=== PATIENT | male | born 1945 | race Two or more races ===

== ENCOUNTER 2024-02-12 13:02 | Inpatient (IN) | payer OTHER ==
[~2024-02-12] VITALS: Ht 180.3 cm; Wt 105.7 kg
[2024-02-12] MEDS ORDERED: IRBESARTAN300 MG PO (13:22)
[2024-02-12] MEDS ORDERED: CARVEDILOL ER40 MG PO (13:22)
[2024-02-12] MEDS ORDERED: LASIX20 MG PO (13:23)
[2024-02-12] MEDS ORDERED: LIPITOR20 MG PO (13:23)
[2024-02-12] MEDS ORDERED: FOSAMAX70 MG PO (13:23)
[2024-02-12] MEDS ORDERED: CARDURA XL4 MG PO (13:24)
[2024-02-12] MEDS ORDERED: ELIQUIS5 MG PO (13:24)
[2024-02-12 16:12] LABS: HEMATOCRIT 23.8 % (39.0-48.0); MEAN CELL VOLUME 72.1 fL (80.0-100.00); MEAN CORPUSCULAR HGB CONC 29.8 g/dl (32.0-36.0); PLATELET COUNT 236 K/uL (150-450); RED BLOOD COUNT 3.31 M/uL (4.00-6.00); RED CELL DISTRIBUTION WIDTH 18.8 % (11.5-14.5)
[2024-02-12 16:14] LABS: MEAN CORPUSCULAR HEMOGLOBIN 21.4 pg (27.00-32.0)
[2024-02-12 16:15] LABS: HEMOGLOBIN 7.1 g/dL (13-16.00)
[2024-02-12 16:32] LABS: INR 1.12; PARTIAL THROMBOPLASTIN TIME 27.6 SECONDS (22.0-34.0); PROTHROMBIN TIME 12.1 SECONDS (9.0-11.5)
[2024-02-12 16:37] LABS: BILIRUBIN TOTAL 0.47 mg/dL (0.3-1.2); CALCIUM 8.4 mg/dL (8.5-10.1); CREATININE SERUM 1.65 mg/dL (0.70-1.30); GFR 40.76; GLOBULINA 3.3 G/DL (2.4-3.5); POTASSIUM 4.31 mEq/L (3.5-5.1); TOTAL PROTEIN 6.3 gm/dL (6.4-8.2)
[2024-02-12] MEDS ORDERED: FUROsemide 20 MG/2 ML VIAL IV SCH (18:30)
[2024-02-12] MEDS ORDERED: 0.9 % SODIUM CHLORIDE 1,000 ML IV SCH (18:30)
[2024-02-12] MEDS ORDERED: CARVEDILOL 12.5 MG TABLET PO SCH (18:34)
[2024-02-12] MEDS ORDERED: PANTOPRAZOLE SODIUM 40 MG/VIAL VIAL IV SCH (18:36)
[2024-02-12] MEDS ORDERED: ACETAMINOPHEN 500 MG GEL..CAP PO PRN (18:45)
[2024-02-12 19:45] LABS: PH,URINE 5.5 (5.0-8.0); URINE BILIRRUBIN Negative (NEGATIVE); URINE BLOOD Negative; URINE COLOR Yellow; URINE GLUCOSE Negative (NEGATIVE); URINE KETONE Negative (NEGATIVE); URINE LEUKOCYTE Negative; URINE NITRATE Negative; URINE PROTEIN Trace (NEGATIVE); URINE UROBILINOGEN 0.2 E.U./dl
[2024-02-12 19:46] LABS: URINE BACTERIA 20.1 uL (0.0-1933); URINE EPITHELIAL CELLS 4.6 uL (0.0-38.8); URINE RBC 4.1 uL (0.0-20.8); URINE WBC 10.1 uL (0.0-23.2)
[2024-02-12 19:50] LABS: URINE APPEARANCE CLEAR; URINE CAST 0.15 uL (0.0-1.40)
[2024-02-13 02:01] VITALS: BP 124/81
[2024-02-13 08:52] VITALS: BP 127/81
[2024-02-13] MEDS ORDERED: ATORVASTATIN CALCIUM 20 MG TABLET PO SCH (09:00)
[2024-02-13] MEDS ORDERED: IRBESARTAN 300 MG TABLET PO SCH (09:00)
[2024-02-13] MEDS ORDERED: IRON FUM,PS/FOLIC/BCOMP,C NO.9 1 CAP CAPSULE PO SCH (09:00)
[2024-02-13] MEDS ORDERED: ALLOPURINOL 300 MG TABLET PO SCH (12:00)
[2024-02-13] MEDS ORDERED: SOD FERRIC GLUC COMPLX/SUCROSE 62.5 MG/5 ML AMPUL IV SCH (17:00)
[2024-02-13] MEDS ORDERED: DOXAZOSIN MESYLATE 4 MG TABLET PO SCH (17:00)
[2024-02-13 18:27] VITALS: BP 153/85; O2SAT 97
[2024-02-13 22:57] VITALS: BP 144/85; O2SAT 97
[2024-02-13] MEDS ORDERED: METHYLPREDNISOLONE SOD SUCC 40 MG VIAL IV PRN (23:00)
[2024-02-13] MEDS ORDERED: DIPHENHYDRAMINE HCL 50 MG/ML VIAL 1ML IV PRN (23:00)
[2024-02-14 02:32] VITALS: BP 128/74; O2SAT 95
[2024-02-14] MEDS ORDERED: ACETAMINOPHEN 500 MG GEL..CAP PO PRN (07:15)
[2024-02-14 09:06] LABS: RH NEGATIVE
[2024-02-14 09:42] VITALS: BP 158/90
[2024-02-14 15:49] LABS: ob POSITIVE (NEGATIVE)
[2024-02-14 16:31] VITALS: BP 140/80; O2SAT 99
[2024-02-15 00:47] VITALS: BP 140/88
[2024-02-15 09:27] VITALS: BP 135/78; O2SAT 97
[2024-02-15] MEDS ORDERED: SPIRONOLACTONE 25 MG TABLET PO NR (10:26)
[2024-02-15 17:16] VITALS: BP 148/84
[2024-02-16 00:16] VITALS: BP 153/82; O2SAT 96
[2024-02-16 03:17] LABS: HEMATOCRIT 27.8 % (39.0-48.0); HEMOGLOBIN 8.6 g/dL (13-16.00); MEAN CELL VOLUME 73.4 fL (80.0-100.00); MEAN CORPUSCULAR HEMOGLOBIN 22.6 pg (27.00-32.0); PLATELET COUNT 216 K/uL (150-450); RED BLOOD COUNT 3.79 M/uL (4.00-6.00); RED CELL DISTRIBUTION WIDTH 19.3 % (11.5-14.5)
[2024-02-16 08:33] VITALS: BP 140/79; O2SAT 97
[2024-02-16] MEDS ORDERED: SPIRONOLACTONE 25 MG TABLET PO SCH (09:00)
[2024-02-16 15:30] VITALS: BP 156/81; O2SAT 98
[2024-02-16 18:27] LABS: HEMATOCRIT 28.5 % (39.0-48.0); MEAN CELL VOLUME 75.6 fL (80.0-100.00); MEAN CORPUSCULAR HGB CONC 31.4 g/dl (32.0-36.0); PLATELET COUNT 209 K/uL (150-450); RED BLOOD COUNT 3.77 M/uL (4.00-6.00); RED CELL DISTRIBUTION WIDTH 20.1 % (11.5-14.5)
[2024-02-16 18:28] LABS: HEMOGLOBIN 8.9 g/dL (13-16.00); MEAN CORPUSCULAR HEMOGLOBIN 23.6 pg (27.00-32.0)
[2024-02-17 01:06] VITALS: BP 120/70; O2SAT 95
[2024-02-17 08:57] VITALS: BP 150/90; O2SAT 97
[2024-02-17 16:46] VITALS: BP 173/90; O2SAT 98
[2024-02-18 00:53] VITALS: BP 120/66; O2SAT 96
[2024-02-18] MEDS ORDERED: CARVEDILOL 25 MG TABLET PO SCH (09:00)
[2024-02-18 10:25] LABS: HEMATOCRIT 35.4 % (39.0-48.0); HEMOGLOBIN 11.2 g/dL (13-16.00); MEAN CELL VOLUME 77.6 fL (80.0-100.00); MEAN CORPUSCULAR HEMOGLOBIN 24.6 pg (27.00-32.0); MEAN CORPUSCULAR HGB CONC 31.7 g/dl (32.0-36.0); PLATELET COUNT 195 K/uL (150-450); RED BLOOD COUNT 4.56 M/uL (4.00-6.00); RED CELL DISTRIBUTION WIDTH 20.8 % (11.5-14.5)
[2024-02-18 16:51] VITALS: BP 126/73; O2SAT 96
[2024-02-18 20:34] VITALS: BP 158/90; O2SAT 96
[2024-02-19 00:36] VITALS: BP 152/77; O2SAT 98
[2024-02-19 06:53] LABS: HEMATOCRIT 37.2 % (39.0-48.0); HEMOGLOBIN 11.8 g/dL (13-16.00); MEAN CELL VOLUME 78.1 fL (80.0-100.00); MEAN CORPUSCULAR HEMOGLOBIN 24.7 pg (27.00-32.0); MEAN CORPUSCULAR HGB CONC 31.6 g/dl (32.0-36.0); PLATELET COUNT 204 K/uL (150-450); RED BLOOD COUNT 4.77 M/uL (4.00-6.00); RED CELL DISTRIBUTION WIDTH 21.5 % (11.5-14.5)
[2024-02-19 07:33] LABS: BILIRUBIN TOTAL 0.84 mg/dL (0.3-1.2); CALCIUM 8.8 mg/dL (8.5-10.1); CREATININE SERUM 1.53 mg/dL (0.70-1.30); GFR 44.47; GLOBULINA 3.4 G/DL (2.4-3.5); MAGNESIUM 2.4 mg/dL (1.8-2.4); PHOSPHOROUS 2.9 mg/dL (2.5-4.9); POTASSIUM 4.4 mEq/L (3.5-5.1); TOTAL PROTEIN 6.4 gm/dL (6.4-8.2)
[2024-02-19 08:47] VITALS: BP 159/68; O2SAT 99
[2024-02-19 17:07] VITALS: BP 147/85; O2SAT 97
[2024-02-19 23:51] VITALS: BP 160/85; O2SAT 97
[2024-02-20 01:01] VITALS: BP 150/80
[2024-02-20 07:15] LABS: INR 1.06; PARTIAL THROMBOPLASTIN TIME 31.9 SECONDS (22.0-34.0); PROTHROMBIN TIME 11.5 SECONDS (9.0-11.5)
[2024-02-20 07:21] LABS: HEMATOCRIT 35.8 % (39.0-48.0); HEMOGLOBIN 11.4 g/dL (13-16.00); MEAN CELL VOLUME 77.5 fL (80.0-100.00); MEAN CORPUSCULAR HEMOGLOBIN 24.8 pg (27.00-32.0); PLATELET COUNT 220 K/uL (150-450); RED BLOOD COUNT 4.62 M/uL (4.00-6.00)
[2024-02-20 07:35] VITALS: BP 118/81; O2SAT 92
[2024-02-20 07:52] LABS: BILIRUBIN TOTAL 0.97 mg/dL (0.3-1.2); CALCIUM 8.9 mg/dL (8.5-10.1); CREATININE SERUM 1.4 mg/dL (0.70-1.30); GFR 49.27; GLOBULINA 3.3 G/DL (2.4-3.5); MAGNESIUM 2.3 mg/dL (1.8-2.4); PHOSPHOROUS 3.2 mg/dL (2.5-4.9); POTASSIUM 4.61 mEq/L (3.5-5.1); TOTAL PROTEIN 6.3 gm/dL (6.4-8.2)
[2024-02-20 17:53] VITALS: BP 138/79; O2SAT 97
[2024-02-21 01:55] VITALS: BP 132/74; O2SAT 96
[2024-02-21 08:19] VITALS: BP 113/71
[2024-02-21] MEDS ORDERED: Cyanocobalamin/Mecobalamin 1 TAB.SL SL SCH (09:00)
[2024-02-21 18:19] VITALS: BP 145/88
[2024-02-21] MEDS ORDERED: PEG3350/SOD SULF,BICARB,CL/KCL 4,000 ML GALLON PO SCH (19:00)
[2024-02-21 21:50] VITALS: BP 140/90
[2024-02-22 02:54] VITALS: BP 130/70
[2024-02-22 09:04] VITALS: BP 138/85
[2024-02-22] MEDS ORDERED: MIDAZOLAM HCL 2 MG/2 ML VIAL IV ONE (13:45)
[2024-02-22] MEDS ORDERED: fentaNYL CITRATE 50 MCG/ML AMPUL IV ONE (13:45)
[2024-02-22 17:41] VITALS: BP 135/67
[2024-02-22 21:35] VITALS: BP 132/59
[2024-02-23 00:30] VITALS: BP 114/69; O2SAT 99
[2024-02-23 08:24] VITALS: BP 123/73
[2024-02-23 17:11] VITALS: BP 129/70
[2024-02-23 22:08] VITALS: BP 140/80
[2024-02-24 00:27] VITALS: BP 118/76; O2SAT 97
[2024-02-24 05:29] LABS: HEMATOCRIT 36.2 % (39.0-48.0); HEMOGLOBIN 11.5 g/dL (13-16.00); MEAN CELL VOLUME 79.6 fL (80.0-100.00); MEAN CORPUSCULAR HEMOGLOBIN 25.2 pg (27.00-32.0); MEAN CORPUSCULAR HGB CONC 31.7 g/dl (32.0-36.0); PLATELET COUNT 225 K/uL (150-450); RED BLOOD COUNT 4.55 M/uL (4.00-6.00); RED CELL DISTRIBUTION WIDTH 24.4 % (11.5-14.5)
[2024-02-24 09:06] VITALS: BP 142/85
[2024-02-24 17:44] VITALS: BP 147/79
[2024-02-24 22:19] VITALS: BP 119/64
[2024-02-25 02:07] VITALS: BP 118/74; O2SAT 97
[2024-02-25 08:37] VITALS: BP 113/68; O2SAT 99
[2024-02-25 11:05] LABS: ALBUMIN 2.9 gm/dL (3.4-5.0); CREATININE SERUM 1.41 mg/dL (0.70-1.30); GFR 48.87; POTASSIUM 4.24 mEq/L (3.5-5.1)
[2024-02-25 17:13] VITALS: BP 128/79; O2SAT 97
[2024-02-26 01:33] VITALS: BP 110/72; O2SAT 97
[2024-02-26 08:49] VITALS: BP 149/80; O2SAT 97
[2024-02-26 16:02] VITALS: BP 146/69
[2024-02-26] MEDS ORDERED: BARIUM SULFATE 450 ML ORAL.SUSP PO SCH (18:00)
[2024-02-26] MEDS ORDERED: CEFTRIAXONE SODIUM 2,000 MG VIAL IV SCH (20:00)
[2024-02-26] MEDS ORDERED: METRONIDAZOLE/SODIUM CHLORIDE 500 MG/100 ML PIGGYBACK IV SCH (20:00)
[2024-02-26] MEDS ORDERED: BISACODYL 5 MG TABLET.EC PO SCH (20:30)
[2024-02-26] MEDS ORDERED: POLYETHYLENE GLYCOL 3350 17 GM BLIST.PACK PO ONE (20:30)
[2024-02-26] MEDS ORDERED: DIATRIZOATE MEGLUMINE, SODIUM 30 ML BOTTLE PO SCH (21:00)
[2024-02-27 01:33] VITALS: BP 90/50; O2SAT 97
[2024-02-27] MEDS ORDERED: BISACODYL 10 MG/SUPP.RECT SUPP.RECT RECTAL SCH (06:00)
[2024-02-27 06:55] LABS: HEMATOCRIT 38.8 % (39.0-48.0); HEMOGLOBIN 12.5 g/dL (13-16.00); MEAN CELL VOLUME 78.5 fL (80.0-100.00); MEAN CORPUSCULAR HEMOGLOBIN 25.3 pg (27.00-32.0); MEAN CORPUSCULAR HGB CONC 32.2 g/dl (32.0-36.0); PLATELET COUNT 271 K/uL (150-450); RED BLOOD COUNT 4.95 M/uL (4.00-6.00)
[2024-02-27 07:31] LABS: ALBUMIN 3.4 gm/dL (3.4-5.0); BILIRUBIN TOTAL 0.74 mg/dL (0.3-1.2); CALCIUM 9.4 mg/dL (8.5-10.1); CREATININE SERUM 1.74 mg/dL (0.70-1.30); GFR 38.34; GLOBULINA 3.7 G/DL (2.4-3.5); MAGNESIUM 2.5 mg/dL (1.8-2.4); PHOSPHOROUS 3.7 mg/dL (2.5-4.9); POTASSIUM 4.37 mEq/L (3.5-5.1); TOTAL PROTEIN 7.1 gm/dL (6.4-8.2)
[2024-02-27 08:50] VITALS: BP 104/65; O2SAT 99
[2024-02-27 15:37] VITALS: BP 122/72
[2024-02-27] MEDS ORDERED: CEFTRIAXONE SODIUM 2,000 MG VIAL IV SCH (18:00)
[2024-02-27] MEDS ORDERED: METRONIDAZOLE/SODIUM CHLORIDE 500 MG/100 ML PIGGYBACK IV SCH (18:00)
[2024-02-28 01:17] VITALS: BP 105/60; O2SAT 96
[2024-02-28 04:53] VITALS: BP 125/75; O2SAT 97
[2024-02-28 08:05] VITALS: BP 96/58; O2SAT 96
[2024-02-28 19:13] VITALS: BP 111/70; O2SAT 96
[2024-02-29 00:53] VITALS: BP 112/72; O2SAT 96
[2024-02-29 08:50] VITALS: BP 145/87; O2SAT 98
[2024-02-29 17:26] VITALS: BP 142/80; O2SAT 97
== END 2024-02-29 18:55 | disposition home or self-care (01) | DRG 375 ==
LOC: ER 13:04 → MEDJ 18:53 → EDBD 18:53 → MEDI 18:53 → MEDJ 19:30
PROVIDERS: Internal Medicine; Nurse Practitioner Family; Specialist/Technologist, Other Nephrology; ADMIT Internal Medicine; ATTEND Internal Medicine
PROC: BW21ZZZ Computerized Tomography (CT Scan) of Abdomen and Pelvis (ICD-10-PCS; 2024-02-12)
PROC: B24BZZZ Ultrasonography of Heart with Aorta (ICD-10-PCS; 2024-02-13)
PROC: 30233N1 Transfusion of Nonautologous Red Blood Cells into Peripheral Vein, Percutaneous Approach (ICD-10-PCS; 2024-02-13)
PROC: 0DBP8ZX Excision of Rectum, Via Natural or Artificial Opening Endoscopic, Diagnostic (ICD-10-PCS; principal; 2024-02-22)
PROC: 0DBN8ZX Excision of Sigmoid Colon, Via Natural or Artificial Opening Endoscopic, Diagnostic (ICD-10-PCS; 2024-02-22)
PROC: BD24YZZ Computerized Tomography (CT Scan) of Colon using Other Contrast (ICD-10-PCS; 2024-02-25)
DX: C18.7 Malignant neoplasm of sigmoid colon (principal); I13.0 Hypertensive heart and chronic kidney disease with heart failure and stage 1 through stage 4 chronic kidney disease, or unspecified chronic kidney disease; N17.9 Acute kidney failure, unspecified; K92.2 Gastrointestinal hemorrhage, unspecified; D63.0 Anemia in neoplastic disease; K40.90 Unilateral inguinal hernia, without obstruction or gangrene, not specified as recurrent; Z79.4 Long term (current) use of insulin; Z95.1 Presence of aortocoronary bypass graft; I48.91 Unspecified atrial fibrillation; I50.9 Heart failure, unspecified; E11.22 Type 2 diabetes mellitus with diabetic chronic kidney disease; N18.30 Chronic kidney disease, stage 3 unspecified; E78.5 Hyperlipidemia, unspecified; D50.9 Iron deficiency anemia, unspecified